=== PATIENT | male | born 1980 | race Caucasian/White ===

== ENCOUNTER → 2023-02-11 | Outpatient (CLI) | payer OTHER, SELFPAY ==
[2023-02-11 07:46] LABS: Absolute Lymphocyte Count 2.13 X10^3/uL (0.83-4.51); Absolute Neutrophil Count 1.9 X10^3/uL (2.0-7.7); Basophil# 0.05 X10^3/uL; Basophil% 1.1 % (0-1); Eosinophil# 0.12 X10^3/uL; Eosinophils% 2.6 % (0-5); Hematocrit 44.1 % (40-54); Hemoglobin 14.4 g/dL (13.0-16.5); Lymphocyte # 2.13 X10^3/ul (0.83-4.51); Lymphocyte % 46.1 % (19-41); Mean Corp Hgb Conc 32.7 g/dL (32-36); Mean Corpuscular Hgb 28.2 pg (27.0-32.0); Mean Corpuscular Volume 86.5 fL (80-94); Mean Platelet Vol. 9.2 fl (6.2-12.0); Monocyte% 8.7 % (0-10); NRBC Flagged by Analyzer 0 % (0-5); Neutrophil % 41.1 % (47-70); Platelet Count 220 K/mm3 (150-450); RBC Distribution Width CV 12.3 % (11.6-14.6); RBC Distribution Width SD 38.9 fl (35.1-43.9); White Blood Count 4.6 K/mm3 (4.4-11.0)
[2023-02-11 08:12] LABS: ALB/GLOB Ratio 1.3 RATIO (0.9-2.4); AST(SGOT) 19 U/L (15-37); Alanine Aminotransfer ALT/SGPT 29 U/L (16-61); Alkaline Phosphatase 48 U/L (45-117); Anion Gap 3 (5-15); BUN 13 mg/dL (7-18); BUN/Creat Ratio 10.6 RATIO (10-20); Calcium,Total 8.9 mg/dL (8.5-10.1); Chloride 107 mmol/L (98-107); Cholesterol 189 mg/dL (200); Creatinine, Serum 1.23 mg/dL (0.70-1.30); EST Glomerular Filtration Rate 69 mL/min (>60); Est Glom Filt Rate - Afr Amer 83 mL/min (>60); Globulin 3.1 g/dL (2.2-4.2); Glucose 92 mg/dL (74-106); High Density Lipoprotein 53 mg/dL; PSA,Total - Annual Screen 0.65 ng/mL (0.00-4.00); Potassium 4.5 mmol/L (3.5-5.1); Protein, Total 7.1 g/dL (6.4-8.2); Sodium Level 138 mmol/L (136-145); Triglycerides 69 mg/dL; Very Low Density Lipoprotein 14 mg/dL (5-40)
== END | disposition home or self-care (01) ==
PROVIDERS: PCP Internal Medicine; Referring Provider Internal Medicine; Visit Provider Internal Medicine
DX: Z00.00 Encounter for general adult medical examination without abnormal findings (principal); Z13.220 Encounter for screening for lipoid disorders; Z12.5 Encounter for screening for malignant neoplasm of prostate; E55.9 Vitamin D deficiency, unspecified
CPT/HCPCS: 36415; 80053; 80061; 82306; 84153; 84443; 85025; G0103

== ENCOUNTER 2023-03-02 05:58 | Day surgery (SDC) | payer OTHER, SELFPAY ==
[2023-03-02] VITALS (9 sets, daily range): BP systolic 108–121; BP diastolic 75–89; PULSE 51–55; RESP 16–18; TEMP 36.2–36.5; O2SAT 97–100; BMI 23.6
--- NOTE | 2023-03-02 06:04 | HP.PCM_ITS ---
History and Physical Date of Admission: 03/02/23 Chief Complaint: hemorrhoids Allergies No Known Allergies Allergy (Verified 02/10/23 14:41) Medications NK 02/10/23 [History Confirmed 02/10/23] PFSH Medical History Allergies Bone fracture History of back problems Hx of emotional problems Family History Mother Breast cancerFather High cholesterolGrandfather MelanomaOther Alcoholism Social History Smoking Status: Never smoker alcohol intake: current details: beer weekly what type of physical activity do you participate in: walking HPI HPI HPI: 42-year-old gentleman is referred by Dr. Sylvie Chopra for surgical consultation regarding rectal bleeding and external hemorrhoids. Patient apparently also is having lower abdominal pain.A written compromise surgical consult and recommendations will return to Dr. Chopra. I see that laboratory was ordered on February 01, 2023 but I am not currently finding those results. The patient works in [employer] basically for the components of pain. 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 He has a physics degree but also a masters in business. The patient states that July 2022 had onset of painless bleeding. There was no constipation diarrhea no injury. He also claims that he has been having some suprapubic pain. The suprapubic pain that radiates laterally is mostly when he is walking. The rectal bleeding can be at any time and occasionally he will just have spontaneous bleeding even without defecation. He does not have any dysuria no hematuria. He otherwise enjoys good health. ROS General General: No weight change, appetite, fatigue, colon cancer, breast cancer or weakness HEENT HEENT: No difficulty swallowing, eye injury, eye surgery, swollen glands or h oarseness Endo Endocrine: No thyroid disease, diabetes mellitus, thyroid cancer, Hair loss, heat intolerance or cold intolerance Skin Skin: No rash or changing moles Breast Breast: No left breast lump, right breast lump, nipple discharge, breast pain, abnormal mammogram, abnormal US or breast enlargement Musc Musculoskeletal: No back problems, arthritis, rheumatoid arthritis, gout or joint pain Cardio Cardiovascular: No murmur, pacemaker, heart disease, atrial fibrillation, high blood pressure, heart attack, heart stent, palpitations, shortness of breat with exertion or chest pain Psych Psychiatric: Yes anxiety; No depression or hearing voices Resp Respiratory: No shortness of breath, No sleep apnea, No cough, No COPD, No asthma, No emphysema and No wheezing Gastro Gastrointestinal: Yes abdominal pain, No nausea or vomiting, No diarrhea, No constipation, Yes blood in stool, No acid reflux, Yes hemorrhoids, No ulcers, No gallbladder problem and No black,tarry stools Jong Hematologic: No blood thinners, No blood disorders, No bleeding, No anemia and No blood clots Neuro Neurologic: No system reviewed and no additional complaints, except as documented, No as per HPI, No abnormal gait, No abnormal hearing, No abnormal movements, No abnormal speech, No behavioral changes, No burning sensations, No confusion, No convulsions, No disequilibrium, No dizziness, No localized weakness, No frequent falls, No headache(s), No lack of coordination, No loss of vision, No memory loss, No numbness, No other visual disturbances, No radicular pain, No restless legs, No sensory deficit, No syncope, No tingling, No tremor(s), No weakness and No other Exam Const General: cooperative, healthy appearing, comfortable and no acute distress HENID Head: normal to inspection Eyes General: appearance normal, both eyes and all related structures Neck Neck: normal visual inspection Chest Chest palpation & inspection: normal inspection of the chest Resp Effort & Inspection: normal respiratory effort Cardio Rate: regular rate Rhythm: regular rhythm GI Inspection: normal to inspection Auscultation: normal bowel sounds Other: External anal exam does not demonstrate any significant external hemorrhoids. He does appear to have some mild internal hemorrhoids. Anteriorly there is possibly a fissure but I did not attempt to do an exam. There is no fresh blood identified today Other: Testicles are descended. No mass. No inguinal defects or particular tenderness. Suprapubic area palpably feels normal no masses no dermal changes. No distinct hernia Musc Cervical Spine: normal cervical lordosis Skin General: no rashes or lesions noted Neuro General: patient alert, patient awake and patient oriented x3 Extrem General: no calf tenderness Psych Appearance: grossly normal Assessment and Plan Assessment and Plan (1) Lower abdominal pain of unknown etiology: Status: Acute (2) Rectal bleeding: Status: Acute Plan: Suprapubic abdominal pain and rectal bleeding undetermined etiology. I recommended the patient a colonoscopy with possible biopsy or polypectomy as indicated. He is aware of the technique, benefit, risk and alternatives. He has had an opportunity to ask and have questions answered. We will schedule and proceed at his discretion. Very careful and a rectal examination will be pursued at that time. Copy: Dr. Sylvie Delaney M.D., F.A.C.S I have examined the patient and the H&P has been reviewed. There are no clinical changes since date of exam. Fidencio Delaney M.D., F.A.C.S.
[2023-03-02] MEDS: Lactated Ringers 1,000 ML 15 ML IV (06:46)
[2023-03-02] MEDS: Midazolam 2 MG/2 ML Syringe (07:05)
[2023-03-02] MEDS: DiphenhydrAMINE 50 MG/ML Syringe (07:10)
--- NOTE | 2023-03-02 07:27 | OP.COLON_ITS ---
Patient Name: Kwaku Phillips Procedure Date: 03/02/2023 7:01 AM Date of : 1980 Age: 43 Procedure: Colonoscopy Indications: Rectal bleeding Providers: Fidencio Dleaney MD Referring MD: Sylvie Chopra Medicines: Midazolam 4.5 mg IV, Meperidine 100 mg IV, Diphenhydramine 12.5 mg IV Patient Profile: Last Colonoscopy: none. The patient's first colonoscopy is today. Complications: No immediate complications. Procedure: Pre-Anesthesia Assessment: - Prior to the procedure, a History and Physical was performed, and patient medications and allergies were reviewed. The patient's tolerance of previous anesthesia was also reviewed. The risks and benefits of the procedure and the sedation options and risks were discussed with the patient. All questions were answered, and informed consent was obtained. Prior Anticoagulants: The patient has taken no anticoagulant or antiplatelet agents. ASA Grade Assessment: II - A patient with mild systemic disease. After reviewing the risks and benefits, the patient was deemed in satisfactory condition to undergo the procedure. After I obtained informed consent, the scope was passed under direct vision. Throughout the procedure, the patient's blood pressure, pulse, and oxygen saturations were monitored continuously. The pediatric colonoscope was introduced through the anus and advanced to the cecum, identified by appendiceal orifice and ileocecal valve. The colonoscopy was performed without difficulty. The patient tolerated the procedure well. The quality of the bowel preparation was good. The ileocecal valve and the appendiceal orifice were photographed. Moderate Sedation: Moderate (conscious) sedation was personally administered by the endoscopist. The following parameters were monitored: oxygen saturation, heart rate, blood pressure, and response to care. Total physician intraservice time was 15 minutes. Scope In: 7:09:04 AM Scope Withdrawal Time 0 hours 7 minutes 58 seconds Scope Out: 7:21:44 AM Total Procedure Duration Time 0 hours 12 minutes 40 seconds Findings: The digital rectal exam findings include non-thrombosed internal hemorrhoids and internal hemorrhoids that prolapse with straining, but spontaneously regress to the resting position (Grade II). Pertinent negatives include normal prostate (size, shape, and consistency). The colon (entire examined portion) appeared normal. Impression: - Non-thrombosed internal hemorrhoids and internal hemorrhoids that prolapse with straining, but spontaneously regress to the resting position (Grade II) found on digital rectal exam. - The entire examined colon is normal. - No specimens collected. Recommendation: - Discharge patient to home. - Resume previous diet. - Continue present medications. - Repeat colonoscopy in 10 years for screening purposes. - Return to my office in 1 week. Suspect internal hemorrhoids as a source of rectal bleeding. Consider surgical hemorrhoidectomy. Procedure Code(s): --- Professional --- 85985, Colonoscopy, flexible; diagnostic, including collection of specimen(s) by brushing or washing, when performed (separate procedure) 75662, 59, Moderate sedation services provided by the same physician or other qualified health overnight caregiver performing the diagnostic or therapeutic service that the sedation supports, requiring the presence of an independent trained observer to assist in the monitoring of the patient's level of consciousness and physiological status; initial 15 minutes of intraservice time, patient age 5 years or older Diagnosis Code(s): --- Professional --- K64.1, Second degree hemorrhoids K62.5, Hemorrhage of anus and rectum CPT copyright 2021 [employer]. All rights reserved. The codes documented in this report are preliminary and upon multimedia services coordinator review may be revised to meet current compliance requirements. Fidencio Delaney MD 03/02/2023 7:27:07 AM This report has been signed electronically. Number of Addenda: 0 Note Initiated On: 03/02/2023 7:01 AM
--- NOTE | 2023-03-02 07:27 | OP.CCLET_ITS ---
03/02/2023 Sylvie Chopra [facility] [address] [place] [address] Re : Colonoscopy procedure for Kwaku Phillips Dear Dr. Chopra This procedure was performed on Thursday, March 02, 2023. My impressions and recommendations are as follows: Impressions : - Non-thrombosed internal hemorrhoids and internal hemorrhoids that prolapse with straining, but spontaneously regress to the resting position (Grade II) found on digital rectal exam. - The entire examined colon is normal. - No specimens collected. Recommendations : - Discharge patient to home. - Resume previous diet. - Continue present medications. - Repeat colonoscopy in 10 years for screening purposes. - Return to my office in 1 week. Suspect internal hemorrhoids as a source of rectal bleeding. Consider surgical hemorrhoidectomy. My findings are described in the full procedure note, which is enclosed. If I can be of further assistance, please feel free to contact me at Doctor phone number(s): Work: . Sincerely, Fidencio Delaney MD 03/02/2023 7:27:07 AM This report has been signed electronically.
== END 2023-03-02 08:15 | disposition home or self-care (01) ==
LOC: EN 05:59 → AC 06:00
PROVIDERS: PCP Internal Medicine; Referring Provider Internal Medicine; Visit Provider Surgery
PROC: 0DJD8ZZ Inspection of Lower Intestinal Tract, Via Natural or Artificial Opening Endoscopic (ICD-10-PCS; CPT 45378; principal; 2023-03-02 06:55)
DX: K62.5 Hemorrhage of anus and rectum (principal); R10.30 Lower abdominal pain, unspecified; K64.1 Second degree hemorrhoids
CPT/HCPCS: 45378; 99152; 99153; J7120